=== PATIENT | male | born 1965 | race Caucasian/White ===

== ENCOUNTER 2024-01-21 21:32 | Inpatient (IN) | payer OTHER ==
[2024-01-21 23:49] VITALS: BMI 21.1
[2024-01-22] MEDS ORDERED: BENZOCAINE/MENTHOL (CHLORASEPTIC ) LOZENGE MM PRN (01:12)
[2024-01-22] MEDS ORDERED: ONDANSETRON *ODT* 4 MG TABLET SL PRN (01:12)
[2024-01-22] MEDS ORDERED: LOPERAMIDE HCL 2 MG CAPSULE PO PRN (01:12)
[2024-01-22] MEDS ORDERED: NALOXONE HCL 0.4 MG/ML VIAL IM PRN (01:12)
[2024-01-22] MEDS ORDERED: NALOXONE HCL (KLOXXADO) 8 MG SPRAY NS PRN (01:12)
[2024-01-22] MEDS ORDERED: guaiFENesin 600 MG TABLET.ER (FP) PO PRN (01:12)
[2024-01-22] MEDS ORDERED: ACETAMINOPHEN 325 MG TABLET (FP) PO PRN (01:12)
[2024-01-22] MEDS ORDERED: BISMUTH SUBSALICYLATE 524 MG/30 ML PO PRN (01:12)
[2024-01-22] MEDS ORDERED: IBUPROFEN 400 MG TABLET (FP) PO PRN (01:12)
[2024-01-22] MEDS ORDERED: MAG HYDROX/AL HYDROX/SIMETH 30 ML UNIT-DOSE CUP PO PRN (01:12)
[2024-01-22] MEDS ORDERED: BENZONATATE 200 MG CAPSULE PO PRN (01:12)
[2024-01-22] MEDS: methaDONE HCL 10 MG TABLET (FOR DETOX USE ONLY) PO ONE (02:46)
[2024-01-22] MEDS: PRENATAL VITAMINS W/ FOLIC ACID TABLET (FP) PO SCH (09:16)
[2024-01-22] MEDS: NICOTINE 21 MG/24 HOURS TOPICAL PATCH TD SCH (09:17)
[2024-01-22] MEDS: POLYETHYLENE GLYCOL (HEALTHYLAX) 3350 17 GM PACKET PO PRN (13:06)
[2024-01-22] MEDS: THIAMINE 100 MG TABLET PO SCH (22:41)
[2024-01-22] MEDS: MELATONIN 5 MG TABLETS PO SCH (22:42)
[2024-01-23] MEDS: hydrOXYzine PAMOATE 25 MG CAPSULE (FP) PO PRN (05:44)
[2024-01-23] MEDS: IBUPROFEN 600 MG TABLET (FP) PO PRN (05:45)
[2024-01-23 11:51] LABS: MCH 32.8 pg (25.7-33.7); MCHC 34.2 g/dl (32.0-35.9); MEAN CELL VOLUME 95.7 fl (80-96); MEAN PLT VOLUME 7.8 fl (7.5-11.1); PLATELET COUNT 150 10^3/uL (134-434); RBC 3.97 M/mm3 (4.00-5.60); RDW 14.1 % (11.9-15.9); WHITE BLOOD COUNT 6.9 K/mm3 (4.0-10.0)
[2024-01-23 11:53] LABS: POTASSIUM 4.4 mmol/L (3.5-5.1)
[2024-01-23 12:00] LABS: ALBUMIN 3.2 g/dl (3.4-5.0); CALCIUM 9.3 mg/dL (8.5-10.1)
[2024-01-23 12:02] LABS: CREATININE 0.9 mg/dL (0.55-1.3)
[2024-01-23 12:03] LABS: TOT PROT 6.4 g/dl (6.4-8.2)
[2024-01-23 12:04] LABS: BILIRUBIN,TOTAL 0.2 mg/dL (0.2-1)
[2024-01-23] MEDS: cloNIDine HCL 0.1 MG TABLET PO PRN (22:04)
[2024-01-23] MEDS: MAGNESIUM HYDROX 2400MG/30ML ORAL SUSPENSION 30 ML CUP PO PRN (22:06)
[2024-01-24] MEDS: methaDONE HCL 10 MG TABLET (FOR DETOX USE ONLY) PO ONE (09:20)
[2024-01-24] MEDS: methaDONE HCL 10 MG TABLET PO ONE (13:05)
[2024-01-24] MEDS: cloNIDine HCL 0.1 MG TABLET PO SCH (13:08)
[2024-01-24] MEDS ORDERED: methaDONE HCL 10 MG TABLET PO PRN (14:30)
[2024-01-25] MEDS: methaDONE 40 MG, methaDONE 10 MG PO ONE (09:17)
[2024-01-25] MEDS: NICOTINE POLACRILEX 2 MG GUM BUC PRN (09:21)
[2024-01-25 09:38] VITALS: BP 109/71; PULSE 66; RESP 16; TEMP 97.1
[2024-01-26] MEDS ORDERED: cloNIDine HCL 0.1 MG TABLET PO PRN
[2024-01-26] MEDS ORDERED: methaDONE HCL 10 MG TABLET (FOR DETOX USE ONLY) PO ONE (10:00)
[2024-01-26] MEDS ORDERED: methaDONE 40 MG, methaDONE 20 MG PO ONE (10:00)
[2024-01-27] MEDS ORDERED: methaDONE 40 MG, methaDONE 30 MG PO ONE (10:00)
[2024-01-28] MEDS ORDERED: methaDONE HCL 40 MG DISPERSABLE TABLET PO ONE (10:00)
[2024-01-29] MEDS ORDERED: methaDONE 80 MG, methaDONE 10 MG PO ONE (10:00)
== END 2024-01-25 12:00 | disposition left against medical advice (07) | DRG 770 ==
LOC: YASAS 21:32 → Y6N 01-22 01:19
PROVIDERS: ADMIT Allergy & Immunology; ATTEND Surgery
PROC: HZ2ZZZZ Detoxification Services for Substance Abuse Treatment (ICD-10-PCS; principal; 2024-01-22)
DX: F11.23 Opioid dependence with withdrawal (principal); F14.20 Cocaine dependence, uncomplicated; F12.20 Cannabis dependence, uncomplicated; F17.210 Nicotine dependence, cigarettes, uncomplicated; F19.282 Other psychoactive substance dependence with psychoactive substance-induced sleep disorder; F19.24 Other psychoactive substance dependence with psychoactive substance-induced mood disorder; F43.10 Post-traumatic stress disorder, unspecified; E86.0 Dehydration; Z62.810 Personal history of physical and sexual abuse in childhood; Z28.310 Unvaccinated for COVID-19; Z28.9 Immunization not carried out for unspecified reason
CPT/HCPCS: 36415; 80053; 80305; 80307; 85027; 86780; 93005; 93010